=== PATIENT | female | born 1945 | race African-American/Black ===

== ENCOUNTER 2021-02-23 12:24 | Inpatient (IN) | payer MEDICARE, MEDICAID ==
[~2021-02-23] VITALS: Ht 157.5 cm; Wt 36.8 kg
[2021-02-23] MEDS ORDERED: SODIUM CHLORIDE 0.9% 1,000 ML IV ONE (13:15)
[2021-02-23 14:04] LABS: BASOPHILS % 0.4 % (0.0-2.0); EOSINOPHILS % 0.2 % (0.0-5.0); HEMATOCRIT. 41.8 % (36.0-48.0); HEMOGLOBIN. 14.5 g/dL (12.0-16.0); LYMPHOCYTES % 11.3 % (20.0-50.0); MEAN PLATELET VOLUME 8.1 fl (7.4-10.4); MONOCYTES % 5.1 % (2.0-8.0); PLATELET 489 x1000/uL (130-400); RED BLOOD CELL COUNT 5.57 mill/uL (4.2-5.4); RED CELL DISTRIBUTION WIDTH 17.6 % (11.6-14.6)
[2021-02-23 14:11] LABS: CHLORIDE 94 mEq/L (98-107)
[2021-02-23 14:19] LABS: CREATINE KINASE 144 IU/L (26-192)
[2021-02-23] MEDS ORDERED: CEFTRIAXONE 1 G PREMIX 50 ML IV ONE (15:45)
[2021-02-23] MEDS ORDERED: SODIUM CHLORIDE 0.9% 1000ML BAG (SEPSIS BOLUS) IV ONE (15:45)
[2021-02-23] MEDS ORDERED: MORPHINE SULFATE 2 MG/ML CPJ (NOT FOR IM USE) IV PRN (22:00)
[2021-02-23] MEDS ORDERED: HYDROCODONE/ACETAMINOPHEN 5/325MG TABLET PO PRN (22:00)
[2021-02-23] MEDS ORDERED: LORAZEPAM 2MG/ML CPJ IV PRN (22:00)
[2021-02-23] MEDS ORDERED: DOCUSATE SODIUM 100MG CAPSULE PO PRN (22:00)
[2021-02-23] MEDS ORDERED: ACETAMINOPHEN 325MG TABLET PO PRN (22:00)
[2021-02-23] MEDS ORDERED: NALOXONE HCL 0.4MG/ML VIAL IV PRN (22:00)
[2021-02-23] MEDS: SODIUM CHLORIDE 0.9% 1,000 ML IV SCH (23:55)
[2021-02-23] MEDS: METOPROLOL TARTRATE 50MG TABLET PO SCH (23:56)
[2021-02-24] VITALS (9 sets, daily range): BP systolic 131–159; BP diastolic 67–129
[2021-02-24] MEDS: ENOXAPARIN 30MG/0.3ML SYR SUBCUT SCH ×2 (02:05→20:56)
[2021-02-24] MEDS ORDERED: METF-874 MT (02:38)
[2021-02-24 07:20] LABS: BASOPHILS % 0.5 % (0.0-2.0); EOSINOPHILS % 0.9 % (0.0-5.0); HEMATOCRIT. 28.4 % (36.0-48.0); HEMOGLOBIN. 9.6 g/dL (12.0-16.0); LYMPHOCYTES % 14.9 % (20.0-50.0); MEAN CORPUSCULAR VOLUME 76.9 fL (81.0-99.0); MEAN PLATELET VOLUME 8.3 fl (7.4-10.4); MONOCYTES % 9.4 % (2.0-8.0); NEUTROPHILS % 74.3 % (40.0-76.0); PLATELET 278 x1000/uL (130-400); RED BLOOD CELL COUNT 3.69 mill/uL (4.2-5.4); RED CELL DISTRIBUTION WIDTH 17.2 % (11.6-14.6)
[2021-02-24 07:21] LABS: CHLORIDE 107 mEq/L (98-107)
[2021-02-24 07:33] LABS: CLARITY URINE CLEAR (CLEAR); COLOR URINE YELLOW (YELLOW); KETONES URINE NEGATIVE (NEGATIVE); LEUKOCYTE ESTERASE URINE NEGATIVE (NEGATIVE); NITRITE URINE NEGATIVE (NEGATIVE); OCCULT BLOOD URINE NEGATIVE (NEGATIVE); PROTEIN URINE 1+ (NEGATIVE); SPECIFIC GRAVITY URINE 1.021 (1.005-1.030); UROBILINOGEN URINE 0.2 E.U./dL (0.2-1.0)
[2021-02-24] MEDS: SODIUM CHLORIDE 0.9% 1,000 ML IV SCH ×2 (07:40→19:11)
[2021-02-24] MEDS: FOLIC ACID 1MG TABLET PO SCH (09:40)
[2021-02-24] MEDS: FERROUS SULFATE 325MG TABLET PO SCH (09:40)
[2021-02-24] MEDS: METOPROLOL TARTRATE 50MG TABLET PO SCH ×2 (09:42→20:56)
[2021-02-24] MEDS ORDERED: PNEUMOCOCCAL 23-VAL P-SAC VAC 0.5 ML IM ONE (19:30)
[2021-02-25] VITALS (7 sets, daily range): BP systolic 118–190; BP diastolic 73–85
[2021-02-25 04:37] LABS: BASOPHILS % 0.5 % (0.0-2.0); EOSINOPHILS % 1.4 % (0.0-5.0); HEMATOCRIT. 26.1 % (36.0-48.0); LYMPHOCYTES % 15.2 % (20.0-50.0); MEAN CORPUSCULAR VOLUME 75.7 fL (81.0-99.0); MEAN PLATELET VOLUME 7.9 fl (7.4-10.4); MONOCYTES % 9.5 % (2.0-8.0); NEUTROPHILS % 73.4 % (40.0-76.0); PLATELET 263 x1000/uL (130-400); RED BLOOD CELL COUNT 3.45 mill/uL (4.2-5.4); RED CELL DISTRIBUTION WIDTH 17.2 % (11.6-14.6)
[2021-02-25] MEDS: SODIUM CHLORIDE 0.9% 1,000 ML IV SCH ×2 (04:51→15:35)
[2021-02-25 04:55] LABS: CHLORIDE 110 mEq/L (98-107)
[2021-02-25] MEDS: FERROUS SULFATE 325MG TABLET PO SCH (08:02)
[2021-02-25] MEDS: FOLIC ACID 1MG TABLET PO SCH (08:02)
[2021-02-25] MEDS: METOPROLOL TARTRATE 50MG TABLET PO SCH ×2 (08:03→20:56)
[2021-02-25] MEDS: ENOXAPARIN 30MG/0.3ML SYR SUBCUT SCH (20:56)
[2021-02-26] VITALS: BP 125/78
[2021-02-26 04:00] VITALS: BP 154/70
[2021-02-26] MEDS: SODIUM CHLORIDE 0.9% 1,000 ML IV SCH ×3 (05:08→20:30)
[2021-02-26 08:00] VITALS: BP 179/66
[2021-02-26] MEDS: FERROUS SULFATE 325MG TABLET PO SCH (10:15)
[2021-02-26] MEDS: FOLIC ACID 1MG TABLET PO SCH (10:15)
[2021-02-26] MEDS: METOPROLOL TARTRATE 50MG TABLET PO SCH ×2 (10:16→20:39)
[2021-02-26] MEDS: LOSARTAN POTASSIUM 100 MG TABLET PO SCH (11:50)
[2021-02-26 12:00] VITALS: BP 182/65
[2021-02-26 16:00] VITALS: BP 158/73
[2021-02-26 20:00] VITALS: BP 200/54
[2021-02-26] MEDS: ENOXAPARIN 30MG/0.3ML SYR SUBCUT SCH (20:39)
[2021-02-27] VITALS: BP_SYST 129; BP_SYST 138; BP_DIAS 72; BP_DIAS 78
[2021-02-27 04:00] VITALS: BP 104/51
[2021-02-27 08:00] VITALS: BP 110/48
[2021-02-27] MEDS: LOSARTAN POTASSIUM 100 MG TABLET PO SCH (09:36)
[2021-02-27] MEDS: FERROUS SULFATE 325MG TABLET PO SCH (09:36)
[2021-02-27] MEDS: FOLIC ACID 1MG TABLET PO SCH (09:36)
[2021-02-27] MEDS: METOPROLOL TARTRATE 50MG TABLET PO SCH ×2 (09:37→21:48)
[2021-02-27 12:00] VITALS: BP 178/102
[2021-02-27] MEDS: CLONIDINE 0.1MG TABLET PO PRN (13:47)
[2021-02-27 16:00] VITALS: BP 133/75
[2021-02-27 20:00] VITALS: BP 150/86
[2021-02-27] MEDS: ENOXAPARIN 30MG/0.3ML SYR SUBCUT SCH (21:49)
[2021-02-28] VITALS: BP 189/88
[2021-02-28 00:10] VITALS: BP 156/84
[2021-02-28 04:00] VITALS: BP 184/61
[2021-02-28] MEDS: CLONIDINE 0.1MG TABLET PO PRN (06:01)
[2021-02-28 08:00] VITALS: BP 110/61
[2021-02-28] MEDS: FOLIC ACID 1MG TABLET PO SCH (08:32)
[2021-02-28] MEDS: METOPROLOL TARTRATE 50MG TABLET PO SCH (08:32)
[2021-02-28] MEDS: LOSARTAN POTASSIUM 100 MG TABLET PO SCH (08:32)
[2021-02-28] MEDS: FERROUS SULFATE 325MG TABLET PO SCH (08:32)
[2021-02-28 12:00] VITALS: BP 160/69
[2021-02-28 16:00] VITALS: BP_SYST 120; BP_SYST 124; BP_DIAS 67; BP_DIAS 69
== END 2021-02-28 17:50 | DRG 73 ==
LOC: ER 12:24 → MICUSO 15:47 → 5EST 23:37 → 7EST 02-25 12:15
PROVIDERS: ADMIT Internal Medicine Nephrology; ATTEND Internal Medicine Nephrology
DX: G90.8 Other disorders of autonomic nervous system (principal); G93.41 Metabolic encephalopathy; E87.1 Hypo-osmolality and hyponatremia; E46 Unspecified protein-calorie malnutrition; Z68.1 Body mass index [BMI] 19.9 or less, adult; R64 Cachexia; E87.2 Acidosis; E11.9 Type 2 diabetes mellitus without complications; E87.8 Other disorders of electrolyte and fluid balance, not elsewhere classified; E87.5 Hyperkalemia; L89.156 Pressure-induced deep tissue damage of sacral region; I10 Essential (primary) hypertension; Z86.73 Personal history of transient ischemic attack (TIA), and cerebral infarction without residual deficits; Z79.84 Long term (current) use of oral hypoglycemic drugs; Z79.1 Long term (current) use of non-steroidal anti-inflammatories (NSAID); Z79.899 Other long term (current) drug therapy
CPT/HCPCS: 36415; 70551; 71045; 80048; 80053; 81003; 82040; 82140; 82550; 82962; 83605; 84134; 84145; 85025; 90732; 92610; 93005; 97162; 99291; C1893; J0696; J1650; J2060; J7030; J7040